=== PATIENT | male | born 1990 | race Caucasian/White ===

== ENCOUNTER 2018-01-10 21:36 | Emergency (ER) | END 2018-01-11 04:00 | disposition home or self-care (01) ==

== ENCOUNTER 2018-06-12 11:54 | Emergency (ER) | END 2018-06-12 16:45 | disposition home or self-care (01) ==

== ENCOUNTER 2018-08-29 08:50 | Emergency (ER) | payer OTHER ==
[~2018-08-29] VITALS: Ht 172.7 cm; Wt 50.0 kg
[~2018-08-29 08:50] MED LIST: ONDA4TAB14 PO; UDMYL PO
[2018-08-29 08:54] VITALS: BP 100/55; PULSE 92; RESP 18; Ht 172.7 cm; Wt 50.0 kg
[2018-08-29] MEDS ORDERED: CEFTRIAXONE 1 GM INJ IM ONE (10:00)
[2018-08-29] MEDS ORDERED: LIDOCAINE 1% (MPF) 5 ML VIAL INJ ONE (10:00)
[2018-08-29] MEDS ORDERED: GUAI-637 PO (10:01)
[2018-08-29] MEDS ORDERED: LEVO750T25 PO (10:01)
--- NOTE | 2018-08-29 10:29 | ERD ---
ER Documentation Chief Complaint Chief Complaint FEVER , COUGH , NOT EATING WELL X 2 DAYS HPI 28-year-old male presenting with cough and fever. Patient has had a productive cough her mother and tactile fevers at home. He has not taken medications at today. Patient has decreased appetite and is complaining of sore throat. Patient medical history of cerebral palsy and anemia. NKDA. Surgical history denies. Social history denies ROS All systems reviewed and are negative except as per history of present illness. Medications Home Meds Active Scripts Guaifenesin* (Robitussin*) 100 Mg/5 Ml Syrup, 100 MG PO Q4H PRN for COUGH, #100 ML Prov:ZAHIDA TIDWELL PA-C 08/29/18 Levofloxacin* (Levaquin*) 750 Mg Tablet, 750 MG PO DAILY for 5 Days, TAB Prov:ZAHIDA TIDWELL PA-C 08/29/18 Magaldrate/Simethicone* (Mag-Al Plus Suspension*) 30 Ml Oral.susp, 30 ML PO Q6H PRN for GASTROINTESTINAL UPSET, #1 BOTTLE Prov:JEROD DAVISON DO 06/12/18 Ondansetron (Ondansetron Odt) 4 Mg Tab.rapdis, 4 MG PO Q6H PRN for NAUSEA AND/OR VOMITING, #10 TAB Prov:SERENA DAUGHERTY 01/11/18 Allergies Allergies: Coded Allergies: No Known Allergy (Unverified , 01/10/18) PMhx/Soc History of Surgery: Yes (MUTE) Anesthesia Reaction: No Hx Neurological Disorder: Yes (Cerebral Palsy) Hx Respiratory Disorders: No Hx Cardiac Disorders: No Hx Psychiatric Problems: No 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 Conjunctivae are pink. Pupils equal, round, and reactive to light. There is no scleral icterus. Tympanic membranes clear bilaterally. Oropharynx clear. NECK: C-spine is soft and supple. There is no meningismus. There is no cervical lymphadenopathy. CHEST: Clear to auscultation bilaterally. There are no rales, wheezes or rhonchi. HEART: Regular rate and rhythm. No murmurs, clicks, rubs or gallops. Result Diagram: 08/29/18 0918 Results 24 hrs Laboratory Tests Test 08/29/18 09:18 White Blood Count 10.0 10^3/ul Red Blood Count 4.99 10^6/ul Hemoglobin 14.3 g/dl Hematocrit 44.3 % Mean Corpuscular Volume 88.8 fl Mean Corpuscular Hemoglobin 28.7 pg Mean Corpuscular Hemoglobin Concent 32.3 g/dl Red Cell Distribution Width 12.2 % Platelet Count 134 10^3/UL Mean Platelet Volume 11.7 fl Immature Granulocytes % 0.500 % Neutrophils % 78.3 % Lymphocytes % 12.5 % Monocytes % 8.5 % Eosinophils % 0.0 % Basophils % 0.2 % Nucleated Red Blood Cells % 0.0 /100WBC Immature Granulocytes # 0.050 10^3/ul Neutrophils # 7.9 10^3/ul Lymphocytes # 1.3 10^3/ul Monocytes # 0.9 10^3/ul Eosinophils # 0.0 10^3/ul Basophils # 0.0 10^3/ul Nucleated Red Blood Cells # 0.0 10^3/ul Current Medications Medications Dose Sig/Bryant Start Time Status Last (Trade) Ordered Route PRN Stop Time Admin Dose Reason Admin Ceftriaxone 1 gm ONCE ONCE 08/29/18 DC Sodium IM 10:00 08/29/18 (Rocephin) 10:01 Lidocaine 5 ml ONCE ONCE 08/29/18 DC (Xylocaine INJ 10:00 08/29/18 1% (Mpf)) 10:01 Procedures/MDM DIAGNOSTIC IMAGING REPORT Patient: RICA PALENCIA : 1990 Age: 28 Sex: M MR #: [id number] DOS: 08/29/18 0912 Ordering MD: SHA TIDWELL PA-C Location: [facility] Room/Bed: PROCEDURE: XR Chest. CLINICAL INDICATION: Cough TECHNIQUE: Single frontal view of the chest was obtained COMPARISON: None FINDINGS: The heart and mediastinum are within normal limits. There are multiple ill-defined nodular opacities in the right mid lung and right lower lobe, measuring up to 4 mm. There is no pleural effusion or pneumothorax. RPTAT: AA IMPRESSION: Multiple tiny ill-defined nodular opacities in the right lung. ER Course: Rocephin IM injection given ED. MDM: 28-year-old male presenting with cough. Patient's chest x-ray is concerning for possible early pneumonia so we will treat aggressively given patient has cerebral palsy patient. I have low suspicion for respiratory distress or hypoxia. Patient's oxygen saturations 99% on room air and there are no signs of respiratory distress on exam. Patient is discharged stricter precautions and told to follow-up with primary care within 1-2 days for close evaluation. Patient is told if symptoms change or worsen to return immediately to the ER. All questions answered at discharge Departure Diagnosis: Primary Impression: Pneumonia Condition: Stable Patient Instructions: Pneumonia (Adult) Referrals: [facility] YOU HAVE RECEIVED A MEDICAL SCREENING EXAM AND THE RESULTS INDICATE THAT YOU DO NOT HAVE A CONDITION THAT REQUIRES URGENT TREATMENT IN THE EMERGENCY DEPARTMENT. FURTHER EVALUATION AND TREATMENT OF YOUR CONDITION CAN WAIT UNTIL YOU ARE SEEN IN YOUR DOCTORS OFFICE WITHIN THE NEXT 1-2 DAYS. IT IS YOUR RESPONSIBILITY TO MAKE AN APPOINTMENT FOR FOLOW-UP CARE. IF YOU HAVE A PRIMARY DOCTOR --you should call your primary doctor and schedule an appointment IF YOU DO NOT HAVE A PRIMARY DOCTOR YOU CAN CALL OUR PHYSICIAN REFERRAL HOTLINE AT IF YOU CAN NOT AFFORD TO SEE A PHYSICIAN YOU CAN CHOSE FROM THE FOLLOWING [facility] [place] [address] [facility] [address] [facility] [address] [facility] [facility] [address] [facility]. [facility] [address] [facility]. [address] Additional Instructions: FOLLOW UP WITH YOUR PRIMARY CARE PHYSICIAN TOMORROW.Return to this facility if you are not improving as expected. ZAHIDA TIDWELL PA-C Aug 29, 2018 10:29
== END 2018-08-29 10:30 | disposition home or self-care (01) ==
LOC: FTE 08:50
DX: J18.9 Pneumonia, unspecified organism (principal)
CPT/HCPCS: 36415; 71045; 85025; 96372; J0696; Z7502; Z7610